=== PATIENT | male | born 1990 | race Caucasian/White ===

== ENCOUNTER 2017-02-11 08:10 | Emergency (ER) | payer SELFPAY ==
[~2017-02-11] VITALS: Ht 172.7 cm; Wt 85.0 kg
[~2017-02-11 08:10] MED LIST: MMW SSP; PENI500T PO
[2017-02-11 08:12] VITALS: BP 171/85; PULSE 78; RESP 15; TEMP 97.8; O2SAT 96
[2017-02-11] MEDS ORDERED: SODIUM CHLOR 0.9% 1000 ML INJ 1,000 ML IV SCH (09:09)
--- NOTE | 2017-02-11 09:13 | PD ---
HPI Chief Complaint: Abdominal Pain Time Seen by Provider: 09:05 Travel History International Travel<30 days: No Contact w/Intl Traveler<30days: No Traveled to known affect area: No History of Present Illness HPI 26-year-old male complains of epigastric abdominal pain with nausea. Patient states that symptoms started around 2 AM. She states the pain is burning pain sharp pain localized to upper abdomen epigastric area. Patient denies any pain radiation. Patient states that he has nausea but no vomiting diarrhea. Patient denies any dysuria or frequency. Patient was seen in emergency room about 2 years ago with the same problem. Patient states that the symptoms resolved by completely subsequently. Patient denies any history of gastritis or peptic ulcer disease. Patient is not on any medication. Patient states he drinks alcohol socially. Patient denies any illicit drug abuse. PFSH Past Medical History Medical History: Denies Significant Hx Cancer: No Cardiovascular Problems: No Diabetes: No Diminished Hearing: No Psychiatric: Yes (HBS OUTPT DR BURGER) Immunizations Current: No Seizures: No Thyroid Disease: No Ulcer: No Tetanus Vaccination: < 5 Years Past Surgical History Surgical History: No Previous Surgery Other Surgery: No Social History Alcohol Use: Yes (SOCIAL) Tobacco Use: Yes (05/09 PPD) Substance Use: No Allergies-Medications (Allergen,Severity, Reaction): Coded Allergies: No Known Allergies (Verified , 02/11/17) Reported Meds & Prescriptions Reported Meds & Active Scripts Active No Active Prescriptions or Reported Medications Review of Systems General / Constitutional: No: Fever Eyes: No: Visual changes HENT: No: Headaches Cardiovascular: No: Chest Pain or Discomfort Respiratory: No: Shortness of Breath Gastrointestinal: Positive: Nausea, Abdominal Pain Genitourinary: No: Dysuria Musculoskeletal: No: Pain Skin: No Rash Neurologic: No: Weakness Psychiatric: No: Depression Endocrine: No: Polydipsia Hematologic/Lymphatic: No: Easy Bruising Physical Exam Narrative GENERAL: Well-nourished, well-developed patient. SKIN: Focused skin assessment warm/dry. HEAD: Normocephalic. EYES: No scleral icterus. No injection or drainage. NECK: Supple, trachea midline. No JVD or lymphadenopathy. CARDIOVASCULAR: Regular rate and rhythm without murmurs, gallops, or rubs. RESPIRATORY: Breath sounds equal bilaterally. No accessory muscle use. GASTROINTESTINAL: Abdomen soft, nondistended. Patient has moderate tenderness on palpation epigastric area. No rebound tenderness. No mass. MUSCULOSKELETAL: No cyanosis, or edema. BACK: Nontender without obvious deformity. No CVA tenderness. Neurologic exam normal. Data Data Last Documented VS Vital Signs Date Time Temp Pulse Resp B/P (MAP) Pulse Ox O2 Delivery O2 Flow Rate FiO2 02/11/17 11:24 68 18 124/73 (90) 98 Room Air 02/11/17 08:12 97.8 Orders Orders Complete Blood Count With Diff (02/11/17 09:09) Comprehensive Metabolic Panel (02/11/17 09:09) Lipase (02/11/17 09:09) Urinalysis - C+S If Indicated (02/11/17 09:09) Ct Abd/Pel W Iv Contrast(Rout) (02/11/17 09:09) Iv Access Insert/Monitor (02/11/17 09:09) Ecg Monitoring (02/11/17 09:09) Oximetry (02/11/17 09:09) Morphine Inj (Morphine Inj) (02/11/17 09:15) Ondansetron Inj (Zofran Inj) (02/11/17 09:15) Sodium Chlor 0.9% 1000 Ml Inj (Ns 1000 M (02/11/17 09:09) Sodium Chloride 0.9% Flush (Ns Flush) (02/11/17 09:15) Famotidine Inj (Pepcid Inj) (02/11/17 09:15) Al-Mag Hy-Si 40-40-4 Mg/Ml Liq (Mag-Al P (02/11/17 09:15) Kesdz-Wgwzcy-Volsoa-Pb Liq ( Liq (02/11/17 09:15) Iohexol 350 Inj (Omnipaque 350 Inj) (02/11/17 11:03) Labs Laboratory Tests Test 02/11/17:17 White Blood Count 13.0 TH/MM3 Red Blood Count 4.63 MIL/MM3 Hemoglobin 15.0 GM/DL Hematocrit 42.6 % Mean Corpuscular Volume 91.9 FL Mean Corpuscular Hemoglobin 32.5 PG Mean Corpuscular Hemoglobin Concent 35.3 % Red Cell Distribution Width 13.1 % Platelet Count 349 TH/MM3 Mean Platelet Volume 8.3 FL Neutrophils (%) (Auto) 57.1 % Lymphocytes (%) (Auto) 27.2 % Monocytes (%) (Auto) 9.5 % Eosinophils (%) (Auto) 5.4 % Basophils (%) (Auto) 0.8 % Neutrophils # (Auto) 7.4 TH/MM3 Lymphocytes # (Auto) 3.5 TH/MM3 Monocytes # (Auto) 1.2 TH/MM3 Eosinophils # (Auto) 0.7 TH/MM3 Basophils # (Auto) 0.1 TH/MM3 CBC Comment DIFF FINAL Differential Comment Urine Color LIGHT-YELLOW Urine Turbidity CLEAR Urine pH 7.0 Urine Specific [place] 1.015 Urine Protein NEG mg/dL Urine Glucose (UA) NEG mg/dL Urine Ketones NEG mg/dL Urine Occult Blood NEG Urine Nitrite NEG Urine Bilirubin NEG Urine Urobilinogen LESS THAN 2.0 MG/DL Urine Leukocyte Esterase NEG Urine WBC LESS THAN 1 /hpf Urine Amorphous Sediment RARE Microscopic Urinalysis Comment CULT NOT INDICATED Blood Urea Nitrogen 12 MG/DL Creatinine 0.92 MG/DL Random Glucose 88 MG/DL Total Protein 6.9 GM/DL Albumin 3.5 GM/DL Calcium Level 8.7 MG/DL Alkaline Phosphatase 76 U/L Aspartate Amino Transf (AST/SGOT) 17 U/L Alanine Aminotransferase (ALT/SGPT) 31 U/L Total Bilirubin LESS THAN 0.1 MG/DL Sodium Level 140 MEQ/L Potassium Level 4.3 MEQ/L Chloride Level 108 MEQ/L Carbon Dioxide Level 27.6 MEQ/L Anion Gap 4 MEQ/L Estimat Glomerular Filtration Rate 99 ML/MIN Lipase 168 U/L [facility] Medical Decision Making Medical Screen Exam Complete: Yes Emergency Medical Condition: Yes Interpretation(s) Last Impressions Abdomen/Pelvis CT 02/11/17 0909 Signed Impressions: Service Date/Time: Saturday, February 11, 2017 10:55 - CONCLUSION: Single large calcified gallstone without inflammatory changes around the gallbladder. The stone is in the neck of the gallbladder. Jose Hu MD FACR 11:31 AM. CBC WBC 13.0. Normal differential. CMP within normal limit. UA negative. Differential Diagnosis Differential diagnosis including gastritis, PUD, pancreatitis, cholecystitis, colitis, UTI, pyelonephritis, nephrolithiasis. Narrative Course 26-year-old male with epigastric abdominal pain. History of gallstone. Normal saline solution 1 25 cc an hour. Morphine 2 mg IV. Zofran 4 mg IV. Pepcid 20 mg IV. Maalox 30 C by mouth. 10 cc by mouth. Diagnosis Primary Impression: Abdominal pain Qualified Codes: R10.13 - Epigastric pain Additional Impressions: Gastritis Qualified Codes: K29.00 - Acute gastritis without bleeding Cholelithiasis Qualified Codes: K80.20 - Calculus of gallbladder without cholecystitis without obstruction Patient Instructions: General Instructions Additional Instructions: Take medications as directed. Follow-up with GI specialist and Gen. surgeon. Return if persistent problem worse. Med/Other Pt SpecificInfo: Prescription(s) given Scripts Promethazine (Phenergan) 25 Mg Tablet 25 MG PO Q6H Y for NAUSEA OR VOMITING, #12 TAB 0 Refills Prov: Jermaine Roa MD 02/11/17 Dicyclomine (Bentyl) 10 Mg Cap 10 MG PO TID for Bowel Management, #30 CAP 0 Refills Prov: Jermaine Roa MD 02/11/17 Sucralfate (Carafate) 1 Gram Tab 1 GM PO QID for Ulcer Prevention, #120 TAB 0 Refills On empty stomach Prov: Jermaine Roa MD 02/11/17 Pantoprazole (Protonix) 20 Mg Tab 20 MG PO DAILY for Reflux, #30 TAB 0 Refills Prov: Jermaine Roa MD 02/11/17 Jermaine Roa MD Feb 11, 2017 09:13
[2017-02-11] MEDS ORDERED: ATROPINE/SCOPOLAM/HYOSCYAM/PB ELIXIR 10 ML CUP PO ONE (09:15)
[2017-02-11] MEDS ORDERED: MORPHINE SULFATE 4 MG/ML INJ IV PUSH ONE (09:15)
[2017-02-11] MEDS ORDERED: ONDANSETRON HCL 4 MG/2 ML VIAL IVP ONE (09:15)
[2017-02-11] MEDS ORDERED: ALUMINUM/MAGNESIUM/SIMETH 30 ML CUP PO ONE (09:15)
[2017-02-11] MEDS ORDERED: FAMOTIDINE 20 MG/2 ML VIAL IV PUSH ONE (09:15)
[2017-02-11] MEDS ORDERED: SODIUM CHLORIDE 0.9% FLUSH 10 ML FLUSH IV FLUSH PRN (09:15)
[2017-02-11 09:30] LABS: AUTOMATED NEUTROPHIL # 7.4 TH/MM3 (1.8-7.7); BASOPHIL # 0.1 TH/MM3 (0-0.2); BASOPHIL % 0.8 % (0.0-2.0); EOSINOPHIL # 0.7 TH/MM3 (0-0.4); EOSINOPHIL % 5.4 % (0.0-4.0); HEMATOCRIT 42.6 % (39.0-51.0); HEMO FLAGS DIFF FINAL; LYMPH % 27.2 % (9.0-44.0); LYMPHOCYTE # 3.5 TH/MM3 (1.0-4.8); MEAN CELL VOLUME 91.9 FL (80.0-100.0); MEAN CORPUSCULAR HEMOGLOBIN 32.5 PG (27.0-34.0); MEAN CORPUSCULAR HGB CONC 35.3 % (32.0-36.0); MONO % 9.5 % (0.0-8.0); NEUT % 57.1 % (16.0-70.0); PLATELET COUNT 349 TH/MM3 (150-450); RED BLOOD COUNT 4.63 MIL/MM3 (4.50-5.90); RED CELL DISTRIBUTION WIDTH 13.1 % (11.6-17.2)
[2017-02-11 09:43] LABS: BLOOD, URINE NEG (NEG); COMMENT (UR) CULT NOT INDICATED; CULTURE IF INDICATED CULT NOT INDICATED; GLUCOSE,URINE NEG (NEG); KETONE, URINE NEG (NEG); NITRITE,URINE NEG (NEG); URINE COLOR LIGHT-YELLOW (YELLW/STRAW)
[2017-02-11 09:54] LABS: ALT (GPT) 31 U/L (12-78)
[2017-02-11 09:57] LABS: ALKALINE PHOSPHATASE 76 U/L (45-117); TOTAL BILIRUBIN ADULT LESS THAN 0.1 MG/DL (0.2-1.0)
[2017-02-11 10:06] LABS: ANION GAP 4 MEQ/L (5-15); AST (GOT) 17 U/L (15-37); BICARBONATE 27.6 MEQ/L (21.0-32.0); BLOOD UREA NITROGEN 12 MG/DL (7-18); CHLORIDE 108 MEQ/L (98-107); GLOMERULAR FILTRATION RATE 99 ML/MIN (>89); POTASSIUM 4.3 MEQ/L (3.5-5.1); SODIUM (NA) 140 MEQ/L (136-145)
[2017-02-11] MEDS ORDERED: IOHEXOL 350 MG/ML 10 ML VIAL (for RAD DIAG) IVCONTRAST ONE (11:03)
--- NOTE | 2017-02-11 11:09 | RADRPT ---
EXAM DATE/TIME: 02/11/2017 10:55 [facility] COMPARISON: No previous studies available for comparison. INDICATIONS : Epigastric pain. IV CONTRAST: 92 cc Omnipaque 350 (iohexol) IV ORAL CONTRAST: No oral contrast ingested. RADIATION DOSE: 9.76 CTDIvol (mGy) MEDICAL HISTORY : None SURGICAL HISTORY : None. ENCOUNTER: Initial ACUITY: 1 day PAIN SCALE: 4/10 LOCATION: Bilateral upper quadrant TECHNIQUE: Volumetric scanning of the abdomen and pelvis was performed. Using automated exposure control and ad justment of the mA and/or kV according to patient size, radiation dose was kept as low as reasonably achievable to obtain optimal diagnostic quality images. DICOM format image data is available electro nically for review and comparison. FINDINGS: LOWER LUNGS: The visualized lower lungs are clear. LIVER: Homogeneous density without lesion. There is no dilation of the biliary tree. Large calcified galls tone is noted. There are no inflammatory changes around the gallbladder. SPLEEN: Normal size without lesion. PANCREAS: Within normal limits. KIDNEYS: Normal in size and shape. There is no mass, stone or hydronephrosis. ADRENAL GLANDS: Within normal limits. VASCULAR: There is no aortic aneurysm. BOWEL/MESENTERY: The stomach, small bowel, and colon demonstrate no acute abnormality. There is no free intraperitone al air or fluid. ABDOMINAL WALL: Within normal limits. RETROPERITONEUM: There is no lymphadenopathy. BLADDER: No wall thickening or mass. REPRODUCTIVE: Within normal limits. INGUINAL: There is no lymphadenopathy or hernia. MUSCULOSKELETAL: Within normal limits for patient age. CONCLUSION: Single large calcified gallstone without inflammatory changes around the gallbladder. The stone is in the neck of the gallbladder. Jose Hu MD FACR on February 11, 2017 at 11:07 Board Certified Radiologist. This report was verified electronically.
[2017-02-11 11:24] VITALS: BP 124/73; PULSE 68; RESP 16; RESP 18; O2SAT 96; O2SAT 98
[2017-02-11] MEDS ORDERED: CARA1TAB6 PO (11:38)
[2017-02-11] MEDS ORDERED: PROM25TA10 PO (11:38)
[2017-02-11] MEDS ORDERED: PANT20 PO (11:38)
[2017-02-11] MEDS ORDERED: DICY10 PO (11:38)
== END 2017-02-11 12:10 | disposition home or self-care (01) ==
LOC: NEPE 08:10
DX: R10.13 Epigastric pain (principal); K29.00 Acute gastritis without bleeding; K80.20 Calculus of gallbladder without cholecystitis without obstruction; R11.0 Nausea; Z72.0 Tobacco use
CPT/HCPCS: 74177; 80053; 81001; 83690; 85025; 96374; 96375; 99285; J2270; J2405; J7030; Q9967

== ENCOUNTER 2017-04-30 16:29 | Emergency (ER) | payer SELFPAY ==
[~2017-04-30 16:29] MED LIST changes: +CARA1TAB6 PO; +DICY10 PO; -MMW SSP; +PANT20 PO; -PENI500T PO; +PROM25TA10 PO
[2017-04-30 16:30] VITALS: BP 143/85; PULSE 76; RESP 14; TEMP 98.3; O2SAT 95
--- NOTE | 2017-04-30 17:21 | PD ---
HPI Chief Complaint: Skin Problem Time Seen by Provider: 16:43 Travel History International Travel<30 days: No Contact w/Intl Traveler<30days: No Traveled to known affect area: No History of Present Illness HPI Patient comes in complaining of possible cold sore the corner of his mouth that began 2 days ago. Patient describes having a burning pain at the site. Denies ever having similar previously. Patient uncertain if it was herpes or not and decided to come to the emergency department further treatment and evaluation. Patient denies doing anything for this. Denies anything making symptoms better or worse. Patient states started off small spot progressively larger. Denies radiation of pain. History Past Medical Histgory Medical History: Denies Significant Hx Hx Cancer: No Social History Alcohol Use: Yes (SOCIAL) Tobacco Use: Yes (05/09 PPD) Allergies-Medications (Allergen,Severity, Reaction): Coded Allergies: No Known Allergies (Verified , 02/11/17) Reported Meds & Prescriptions Reported Meds & Active Scripts Active Phenergan (Promethazine HCl) 25 Mg Tablet 25 Mg PO Q6H PRN Bentyl (Dicyclomine HCl) 10 Mg Cap 10 Mg PO TID Carafate (Sucralfate) 1 Gram Tab 1 Gm PO QID On empty stomach Protonix (Pantoprazole Sodium) 20 Mg Tab 20 Mg PO DAILY Review of Systems Except as stated in HPI: all other systems reviewed are Neg Physical Exam Narrative GENERAL: Well-developed, overly nourished, in no acute distress, and non-ill appearing. SKIN: Herpetic lesion noted over the corner of the mouth on the right. No fluctuation, induration, or crepitus. No signs of secondary infection. HEAD: Atraumatic. Normocephalic. EYES: Pupils equal and round. EOMI. No scleral icterus. No injection or drainage. ENT: No nasal bleeding or discharge. Mucous membranes pink and moist. NECK: Trachea midline. Supple. No nuclear rigidity. RESPIRATORY: No accessory muscle use. No respiratory distress. MUSCULOSKELETAL: No obvious deformities. No clubbing. No cyanosis. No edema. Full range of motion. NEUROLOGICAL: Awake and alert. No obvious cranial nerve deficits. Motor grossly within normal limits. Normal speech. PSYCHIATRIC: Appropriate mood and affect; insight and judgment normal. Data Data Last Documented VS Vital Signs Date Time Temp Pulse Resp B/P (MAP) Pulse Ox O2 Delivery O2 Flow Rate FiO2 04/30/17 16:30 98.3 76 14 143/85 (104) 95 MDM Medical Screen Exam Complete: Yes Emergency Medical Condition: No Narrative Course History and physical exam findings are not consistent with an emergent medical condition. He was given the option of receiving additional care, but has declined. States he just wants using [id number] medicine. Therefore the appropriate counseling recommendations were discussed with the patient and he was instructed to follow-up with his primary care physician as soon as possible for reevaluation. Patient was also informed of community resources from which he can obtain additional care. He is agreeable and verbalizes an understanding of the proposed plan. The patient states he will immediately return to the emergency department if his current complaints do not improve, new symptoms arise, or emergent condition develops. Patient ambulated out of the emergency department without difficulty. Primary Impression: Encounter for medical screening examination Disposition: [facility]-ED USE ONLY Condition: Stable Manjit Torres Apr 30, 2017 17:21
== END 2017-04-30 17:03 | disposition left against medical advice (07) ==
LOC: NEPK 16:29
DX: B00.1 Herpesviral vesicular dermatitis (principal)
CPT/HCPCS: 99281

== ENCOUNTER 2017-09-23 07:37 | Emergency (ER) | payer SELFPAY ==
[~2017-09-23] VITALS: Ht 172.7 cm; Wt 81.0 kg
[2017-09-23 07:40] VITALS: BP 139/90; PULSE 85; RESP 16; TEMP 97.9; O2SAT 97
[2017-09-23] MEDS ORDERED: PENI500T PO (07:50)
--- NOTE | 2017-09-23 07:57 | PD ---
HPI Chief Complaint: Oral / Dental Pain or Problem Time Seen by Provider: 07:49 Travel History International Travel<30 days: No Contact w/Intl Traveler<30days: No Traveled to known affect area: No History of Present Illness HPI 27-year-old male presents to the emergency room for evaluation of right lower dental pain for the past 2 days. States he has had pain for a long time since the tooth broke but pain significantly worsened last night. It is constant, sharp. He has been taking [id number] aspirin and Orajel without relief in symptoms. Denies fever, chills, nausea, vomiting, or drainage. He does not have a dentist in the area. He denies any chronic medical conditions or daily medications. PFSH Past Medical History Cancer: No Cardiovascular Problems: No Diabetes: No Diminished Hearing: No Psychiatric: Yes (HBS OUTPT DR BURGER) Immunizations Current: No Seizures: No Thyroid Disease: No Ulcer: No Past Surgical History Other Surgery: No Social History Alcohol Use: Yes (SOCIAL) Tobacco Use: Yes (05/09 PPD) Substance Use: No Allergies-Medications (Allergen,Severity, Reaction): Coded Allergies: No Known Allergies (Verified Adverse Reaction, Unknown, 09/23/17) Reported Meds & Prescriptions Reported Meds & Active Scripts Active Penicillin V Potassium 500 Mg Tab 500 Mg PO Q8H 7 Days Phenergan (Promethazine HCl) 25 Mg Tablet 25 Mg PO Q6H PRN Bentyl (Dicyclomine HCl) 10 Mg Cap 10 Mg PO TID Carafate (Sucralfate) 1 Gram Tab 1 Gm PO QID On empty stomach Protonix (Pantoprazole Sodium) 20 Mg Tab 20 Mg PO DAILY Review of Systems Except as stated in HPI: all other systems reviewed are Neg Physical Exam Narrative GENERAL: Well-nourished, well-developed male in no acute distress. Afebrile. Ambulatory. SKIN: Focused skin assessment warm/dry. HEAD: Normocephalic. EYES: No scleral icterus. No injection or drainage. NECK: Supple, trachea midline. No JVD or lymphadenopathy. DENTAL: Moderate decay throughout. No loose or chipped teeth. No malocclusion. Tooth #31 has an extremely large cavity with root exposed. There is no significant surrounding erythema, induration. No drainage. No submental, submandibular, or buccal induration. CARDIOVASCULAR: Regular rate and rhythm without murmurs, gallops, or rubs. RESPIRATORY: Breath sounds equal bilaterally. No accessory muscle use. Data Data Last Documented VS Vital Signs Date Time Temp Pulse Resp B/P (MAP) Pulse Ox O2 Delivery O2 Flow Rate FiO2 09/23/17 07:40 97.9 85 16 139/90 (106) 97 MDM Medical Decision Making Medical Screen Exam Complete: Yes Emergency Medical Condition: Yes Medical Record Reviewed: Yes Differential Diagnosis Dental caries, dental abscess, gingivitis Narrative Course 27-year-old male presents to the emergency room for evaluation of right lower dental pain for the past 2 days. He has been having pain for a long time it significantly worsened today. No associated systemic signs of infection. Vital signs stable. Physical exam reveals moderate decay throughout. Tooth #31 has an extremely large cavity with root exposed. There is no significant surrounding erythema, induration. No drainage. No submental, submandibular, or buccal induration. Patient treated with penicillin for possible infection. Told to follow-up with a dentist this week to have the tooth removed. He understands and agrees to plan. Diagnosis Primary Impression: Dental cavity Referrals: Primary Care Physician Additional Instructions: Rest and drink plenty of fluids. 800 mg ibuprofen every 6-8 hours with food. Do not take more than directed. Follow-up with a dentist. Return to the emergency room for worsening symptoms. Med/Other Pt SpecificInfo: Prescription(s) given Scripts Penicillin V Potassium (Penicillin V Potassium) 500 Mg Tab 500 MG PO Q8H for Infection for 7 Days, #21 TAB 0 Refills Prov: eNhemias Klein MD 09/23/17 Disposition: 01 DISCHARGE HOME Condition: Stable Zoie Guerin September 23, 2017 07:57
== END 2017-09-23 08:16 | disposition home or self-care (01) ==
LOC: NEPD 07:37
DX: K02.9 Dental caries, unspecified (principal); F17.200 Nicotine dependence, unspecified, uncomplicated
CPT/HCPCS: 99283